=== PATIENT | female | born 1990 | race Caucasian/White ===

== ENCOUNTER 2020-02-22 16:43 | Emergency (ER) | payer SELFPAY ==
[2020-02-22] MEDS ORDERED: Ketorolac 15 MG/ML SDV IVPUSH ONE (17:14)
[2020-02-22] MEDS ORDERED: Prochlorperazine 10 MG/2 ML SDV IVPUSH ONE (17:14)
[2020-02-22] MEDS ORDERED: Acetaminophen 325 MG Tab PO ONE (17:14)
[2020-02-22] MEDS ORDERED: Sodium Chloride 0.9% 1,000 ML IV ONE (17:14)
--- NOTE | 2020-02-22 17:24 | EDM.PDOC ---
<Mike Membreno - Last Filed: 02/22/20 19:01> ED HPI GENERAL MEDICAL PROBLEM - General Chief Complaint: General Stated Complaint: DIZZINESS, RT SIDE PAIN Time Seen by Provider: 02/22/20 16:51 - History of Present Illness INITIAL COMMENTS - FREE TEXT/NARRATIVE: HISTORY AND PHYSICAL: History of present illness: This 29-year-old female with a past medical history of hypothyroidism, BMI greater than 40, presents emergency department complaining of right upper quadrant pain that she rates 5 out of 10. Is in the right upper quadrant and radiates towards the back. She does notice that is been worse after meals heavy in fat like fried chicken and pizza. She has not had problems with her gallbladder in the past. She denies any urinary symptoms. No shortness of breath or chest pain. No fever. No hematemesis or hematochezia. She has been nauseated and has vomited one time. She feels generally weak and worn down. No other associated signs or symptoms. No other modifying, aggravating or alleviating factors. Review of systems: A 10-point review of systems, other than pertinent positives and negatives as stated per HPI, is otherwise negative. Past medical history: As per history of present illness and as reviewed below otherwise noncontributory. Surgical history: As per history of present illness and as reviewed below otherwise noncontributory. Social history: No reported history of drug or alcohol abuse. Family history: As per history of present illness and as reviewed below otherwise noncontributory. Physical exam: VITAL SIGNS: Reviewed. GENERAL: Mild distress. Appears to be in acute pain HEAD: No signs of head trauma. EYES: Pupils are equal. Extraocular motions intact. EARS: Hearing grossly intact. MOUTH: Oropharynx is normal. NECK: No adenopathy, no JVD. CHEST: Chest with clear breath sounds bilaterally. No wheezes, rales, or rhonchi. CARDIAC: Regular rate and rhythm. Normal S1 and S2, without murmurs, gallops, or rubs. VASCULAR: Peripheral pulses normal and equal in all extremities. ABDOMEN: Soft, tender right upper quadrant, no distention or rebound. No CVA tenderness. MUSCULOSKELETAL: Good range of motion of all major joints. Extremities without clubbing, cyanosis or edema. NEUROLOGIC EXAM: Alert and oriented x 3. No focal sensory or motor deficits. Speech normal. Follows commands. PSYCHIATRIC: Mood normal. SKIN: No rash or lesions. Initial Differential Diagnosis & Plan: The differential diagnosis would include appendicitis, cholecystitis, pyelonephritis, pancreatitis, mesenteric infarction, diverticulitis, small bowel obstruction, volvulus, and ACS. Suggestive of biliary or renal colic. I will perform a bedside ultrasound to evaluate the gallbladder. If this is negative I will order a CT and a formal ultrasound. Will order labs to include CBC, CMP, UA, urine hCG, and a lipase. Definitive disposition and diagnosis as appropriate pending reevaluation and review of above. RUQ Pain Score (Numeric/FACES): 5 - Related Data Allergies Allergy/AdvReac Type Severity Reaction Status Date / Time No Known Allergies Allergy Verified 02/22/20 17:09 Home Meds: Home Meds Levothyroxine 75 mcg PO DAILY 02/22/20 [History] Venlafaxine [Effexor] 225 mg PO DAILY 02/22/20 [History] traZODone HCl [Trazodone HCl] 150 mg PO BEDTIME 02/22/20 [History] Past Medical History Endocrine/Metabolic History: Reports: Hypothyroidism - Past Surgical History HEENT Surgical History: Reports: Tonsillectomy Musculoskeletal Surgical History: Reports: Other (See Below) Other Musculoskeletal Surgeries/Procedures:: Bilateral Hip Surgeries x3 each Social & Family History - Family History Cardiac: Reports: Hypertension Endocrine/Metabolic: Reports: Diabetes, type II - Tobacco Use Smoking Status *Q: Current Every Day Smoker Years of Tobacco use: 3 Packs/Tins Daily: 0.5 - Recreational Drug Use Recreational Drug Use: No ED ROS GENERAL - Review of Systems Review Of Systems: Unable To Obtain (noted) Reason Not Obtained: noted ED EXAM, GENERAL - Physical Exam Exam: Not Obtained (see noted) ED GENERAL MEDICAL PROCEDURES - Additional/Other Procedure(s) Other (Free Text) Procedure(s): Procedure: Limited Abdominal Ultrasound - Right Upper Quadrant Performed and interpreted by me; images recorded and archived Indication: Right upper quadrant/epigastric pain/flank pain Findings: -No gallstones -No pericholecystic fluid -Normal gallbladder wall thickness -Common Bile duct not adequately visualized Interpretation: Normal right upper quadrant ultrasound No evidence of gallstones No evidence of cholecystitis Signed by Mike Membreno M.D. Procedure Note: Physician placed IV Due to difficult or critical IV access situation I have placed an IV for treatment and circulatory access. Location: 20-gauge angiocatheter right antecubital fossa Complications: None Course - Vital Signs Last Recorded V/S: Last Vital Signs Temp 36.6 C 02/22/20 19:11 Pulse 71 02/22/20 19:11 Resp 18 02/22/20 19:11 BP 127/70 02/22/20 19:11 Pulse Ox 99 02/22/20 19:11 - Orders/Labs/Meds Labs: Laboratory Tests 02/22/20 02/22/20 02/22/20 Range/Units 17:33 17:33 17:41 WBC 11.77 H (4.0-11.0) K/uL RBC 4.76 (4.30-5.90) M/uL Hgb 14.1 (12.0-16.0) g/dL Hct 43.2 (36.0-46.0) % MCV 90.8 (80.0-98.0) fL MCH 29.6 (27.0-32.0) pg MCHC 32.6 (31.0-37.0) g/dL RDW Std Deviation 43.8 (28.0-62.0) fl RDW Coeff of Bowen 13 (11.0-15.0) % Plt Count 350 (150-400) K/uL MPV 10.50 (7.40-12.00) fL Neut % (Auto) 63.4 (48.0-80.0) % Lymph % (Auto) 25.7 (16.0-40.0) % [place] % (Auto) 5.9 (0.0-15.0) % Eos % (Auto) 4.7 (0.0-7.0) % Baso % (Auto) 0.3 (0.0-1.5) % Neut # (Auto) 7.5 H (1.4-5.7) K/uL Lymph # (Auto) 3.0 H (0.6-2.4) K/uL [place] # (Auto) 0.7 (0.0-0.8) K/uL Eos # (Auto) 0.6 (0.0-0.7) K/uL Baso # (Auto) 0.0 (0.0-0.1) K/uL Nucleated RBC % 0.0 /100WBC Nucleated RBCs # 0 K/uL Sodium (136-145) mmol/L Potassium (3.5-5.1) mmol/L Chloride (98-107) mmol/L Carbon Dioxide (21.0-32.0) mmol/L BUN (7.0-18.0) mg/dL Creatinine (0.6-1.0) mg/dL Est Cr Clr Drug Dosing mL/min Estimated GFR (MDRD) ml/min Glucose (74-106) mg/dL Calcium (8.5-10.1) mg/dL Total Bilirubin (0.2-1.0) mg/dL AST (15-37) IU/L ALT (14-63) IU/L Alkaline Phosphatase (46-116) U/L Total Protein (6.4-8.2) g/dL Albumin (3.4-5.0) g/dL Globulin (2.6-4.0) g/dL Albumin/Globulin Ratio (0.9-1.6) Lipase (73-393) U/L Urine Color YELLOW Urine Appearance HAZY Urine pH 5.0 (5.0-8.0) Ur Specific Fork >= 1.030 (1.001-1.035) Urine Protein NEGATIVE (NEGATIVE) mg/dL Urine Glucose (UA) NEGATIVE (NEGATIVE) mg/dL Urine Ketones NEGATIVE (NEGATIVE) mg/dL Urine Occult Blood NEGATIVE (NEGATIVE) Urine Nitrite NEGATIVE (NEGATIVE) Urine Bilirubin NEGATIVE (NEGATIVE) Urine Urobilinogen 0.2 (<2.0) EU/dL Ur Leukocyte Esterase NEGATIVE (NEGATIVE) Urine HCG, Qual NEGATIVE (NEGATIVE) 02/22/20 Range/Units 17:41 WBC (4.0-11.0) K/uL RBC (4.30-5.90) M/uL Hgb (12.0-16.0) g/dL Hct (36.0-46.0) % MCV (80.0-98.0) fL MCH (27.0-32.0) pg MCHC (31.0-37.0) g/dL RDW Std Deviation (28.0-62.0) fl RDW Coeff of Bowen (11.0-15.0) % Plt Count (150-400) K/uL MPV (7.40-12.00) fL Neut % (Auto) (48.0-80.0) % Lymph % (Auto) (16.0-40.0) % [place] % (Auto) (0.0-15.0) % Eos % (Auto) (0.0-7.0) % Baso % (Auto) (0.0-1.5) % Neut # (Auto) (1.4-5.7) K/uL Lymph # (Auto) (0.6-2.4) K/uL [place] # (Auto) (0.0-0.8) K/uL Eos # (Auto) (0.0-0.7) K/uL Baso # (Auto) (0.0-0.1) K/uL Nucleated RBC % /100WBC Nucleated RBCs # K/uL Sodium 140 (136-145) mmol/L Potassium 3.8 (3.5-5.1) mmol/L Chloride 102 (98-107) mmol/L Carbon Dioxide 28.6 (21.0-32.0) mmol/L BUN 10 (7.0-18.0) mg/dL Creatinine 0.7 (0.6-1.0) mg/dL Est Cr Clr Drug Dosing 107.67 mL/min Estimated GFR (MDRD) > 60.0 ml/min Glucose 85 (74-106) mg/dL Calcium 9.5 (8.5-10.1) mg/dL Total Bilirubin 0.3 (0.2-1.0) mg/dL AST 25 (15-37) IU/L ALT 34 (14-63) IU/L Alkaline Phosphatase 62 (46-116) U/L Total Protein 7.3 (6.4-8.2) g/dL Albumin 3.9 (3.4-5.0) g/dL Globulin 3.4 (2.6-4.0) g/dL Albumin/Globulin Ratio 1.1 (0.9-1.6) Lipase 89 (73-393) U/L Urine Color Urine Appearance Urine pH (5.0-8.0) Ur Specific Fork (1.001-1.035) Urine Protein (NEGATIVE) mg/dL Urine Glucose (UA) (NEGATIVE) mg/dL Urine Ketones (NEGATIVE) mg/dL Urine Occult Blood (NEGATIVE) Urine Nitrite (NEGATIVE) Urine Bilirubin (NEGATIVE) Urine Urobilinogen (<2.0) EU/dL Ur Leukocyte Esterase (NEGATIVE) Urine HCG, Qual (NEGATIVE) Meds: Medications Discontinued Medications Generic Name Dose Route Start Last Admin Trade Name Yuli PRN Reason Stop Dose Admin Acetaminophen 975 mg 02/22/20 17:14 02/22/20 17:40 Tylenol PO 02/22/20 17:15 975 mg NOW ONE Administration Sodium Chloride 1,000 mls @ 2,000 mls/hr 02/22/20 17:14 02/22/20 17:40 Normal Saline IV 02/22/20 17:43 2,000 mls/hr .Bolus ONE Administration Ketorolac Tromethamine 15 mg 02/22/20 17:14 02/22/20 17:40 Toradol IVPUSH 02/22/20 17:15 15 mg ONETIME ONE Administration Prochlorperazine Edisylate 10 mg 02/22/20 17:14 02/22/20 17:40 Compazine IVPUSH 02/22/20 17:15 10 mg ONETIME ONE Administration - Re-Assessments/Exams Free Text/Narrative Re-Assessment/Exam: 02/22/20 19:04 The patient is feeling much better at time of turnover to my colleague, Dr. Escobar, who will follow up on the CT scan and reevaluate the patient. The labs are essentially normal. The right upper quadrant ultrasound shows a cyst on the kidney but not polycystic kidney disease. There is no biliary pathology noted. This is consistent with my bedside ultrasound done previously. CT scan is pending. I have reviewed the images and do not see clear evidence of obvious pathology but the radiologist is reading this currently. My diagnostic impression: 1. Abdominal pain unclear etiology symptoms resolved 2. History of BMI greater than 45 I discussed the go home plan with the patient and for discharge I do not recommend any specific medications as we do not want amassed symptoms that of unclear etiology. Dr. Escobar will prescribe appropriate medications if there is underlying pathology that will be helped by medication management. Departure - Departure Time of Disposition: 19:06 Disposition: Home, Self-Care 01 Clinical Impression: Right upper quadrant abdominal pain - Discharge Information *PRESCRIPTION DRUG MONITORING PROGRAM REVIEWED*: Not Applicable *COPY OF PRESCRIPTION DRUG MONITORING REPORT IN PATIENT SHANTI: Not Applicable Instructions: Abdominal Pain, Adult, [id number], Pain Without a Known Cause Referrals: Grondahl,Corinna L, [employer] [Primary Care Provider] - 1 Week (for follow-up of symptoms ) Forms: ED Department Discharge Additional Instructions: Thank you for choosing the [facility] emergency department in [place] for your medical needs today. It was a pleasure caring for you. You were seen in the emergency department for abdominal pain. Your blood work and CT scan were unremarkable. This should be reassuring, as we do not see a dangerous or life-threatening explanation for your pain today. I do recommend following up with your primary medical clinic in the next week or so for reevaluation if your symptoms do not subside. I recommend [id number] acetaminophen and ibuprofen for pain in the meantime. Come back to the emergency department immediately if your pain worsens, if you develop a fever of 100.4 or higher, repeated vomiting, vomiting blood, if you see blood in your bowel movements, or have any other new or concerning symptoms. Please return the emergency department immediately if your symptoms worsen or if you feel worse. The following information is given to patients seen in the emergency department who are being discharged. This information is to outline your options for follow -up care. We provide all patients seen in our emergency department with a follow -up referral. The need for follow-up, as well as the timing and circumstances, are variable depending upon the specifics of your emergency department visit. If you don't have a primary care physician on staff, we will provide you with a referral. We always advise you to contact your personal physician following an emergency department visit to inform them of the circumstance of the visit and for follow-up with them and/or the need for any referrals to a consulting specialist. The emergency department will also refer you to a specialist when appropriate. This referral assures that you have the opportunity for follow-up care with a specialist. All of these measure are taken in an effort to provide you with optimal care, which includes your follow-up. Under all circumstances we always encourage you to contact your private physician who remains a resource for coordinating your care. When calling for follow-up care, please make the office aware that this follow-up is from your recent emergency room visit. If for any reason you are refused follow-up, please contact the [facility] Emergency Department at and asked to speak to the emergency department charge nurse. If you do not have a primary care physician that is caring for you, you can contact these clinics below to set up an appointment to establish care: [facility] [address] [place] [address] [facility] [address] [place] [address] Sepsis Event Note - Evaluation Sepsis Screening Result: No Definite Risk - Focused Exam Vital Signs: Vital Signs Temp Pulse Resp BP Pulse Ox 02/22/20 19:11 36.6 C 71 18 127/70 99 02/22/20 17:04 36.4 C 82 18 132/95 H 97 Date Exam was Performed: 02/22/20 Time Exam was Performed: 19:01 <Rich Escobar - Last Filed: 02/22/20 19:26> Course - Vital Signs Text/Narrative:: I assumed care of this patient at [address] Mike Membreno. 29-year -old female complaining of right upper quadrant abdominal pain, worse after eating fatty foods. I reviewed the triage note along with vital signs and work- up. Vitally stable, afebrile. CBC shows a very slight leukocytosis. Electrolytes and renal function normal. Hepatic markers and lipase are within normal limits. Urinalysis is bland, no blood or evidence of infection. Noncontrast CT scan of the abdomen/pelvis showed multiple small nonobstructive calculi in both kidneys, otherwise no acute findings. Patient already received IV Compazine along with IV Toradol and Tylenol. I personally reevaluated the patient at 1920. Her most recent set of vital signs are reassuring. She is feeling much better after receiving medications. She has very minimal tenderness in the right upper quadrant, her abdomen is soft , and she appears very comfortable. Given her negative work-up and well appearance, she is stable to discharge home with outpatient primary care follow-up. I did recommend [id number] Tylenol/Motrin as needed for pain. Strict emergency department return precautions were provided, patient indicated understanding. All questions were answered prior to departure. Discharged in good condition. Departure - Departure Time of Disposition: 19:23 Condition: Good - Discharge Information *PRESCRIPTION DRUG MONITORING PROGRAM REVIEWED*: Not Applicable *COPY OF PRESCRIPTION DRUG MONITORING REPORT IN PATIENT SHANTI: Not Applicable Sepsis Event Note - Focused Exam Date Exam was Performed: 02/22/20 Time Exam was Performed: 19:24
[2020-02-22 18:16] LABS: BLOOD UREA NITROGEN,BUN 10 mg/dL (7.0-18.0); CARBON DIOXIDE,CO2 28.6 mmol/L (21.0-32.0); CHLORIDE,CL 102 mmol/L (98-107); GLUCOSE RANDOM 85 mg/dL (74-106); LIPASE 89 U/L (73-393); POTASSIUM,K 3.8 mmol/L (3.5-5.1); SODIUM,NA 140 mmol/L (136-145)
--- NOTE | 2020-02-22 18:26 | US ---
INDICATION: Right upper quadrant pain. COMPARISON: None available. TECHNIQUE: Ultrasound examination of the right upper quadrant was performed. FINDINGS: There is normal appearance of the gallbladder, with no sign of cholelithiasis or acute cholecystitis. There is no sign of gallbladder wall thickening or pericholecystic fluid. A sonographic Howe sign is not present. The common bile duct is normal in caliber at 3 mm. The pancreatic head and body were examined, and these are normal in appearance. The abdominal aorta and visualized portions of the inferior vena cava are normal in appearance. The liver shows no sign of mass or contour abnormality, and there is no sign of ascites. The right kidney is seen to have a small parapelvic cyst in the lower pole measuring 1.5 centimeters in diameter. IMPRESSION: Normal right upper quadrant ultrasound aside from incidental finding of a simple parapelvic cyst in the right kidney. Dictated by Ciro Austin MD @ Feb 22 2020 6:22PM Signed by Dr. Ciro Austin @ Feb 22 2020 6:25PM
--- NOTE | 2020-02-22 19:11 | CT ---
INDICATION: Right upper quadrant pain and flank pain. COMPARISON: Ultrasound of the right upper quadrant from today. TECHNIQUE: CT examination of the abdomen and pelvis was performed without contrast enhancement using 3 mm thick axial sections from the lung bases through the pubic symphysis. Oral contrast was not administered. Please note that all CT scans at this facility use dose modulation, iterative reconstruction, and/or weight-based dosing when appropriate to reduce radiation dose to as low as reasonably achievable. FINDINGS: In the abdomen, the unenhanced liver, spleen, pancreas, and adrenals are normal in appearance. There are several small, nonobstructive calculi in both kidneys. The largest calculus on the right is in the posterior interpolar region, measuring 4 millimeters in diameter. The largest calculus on the left is in the anterior interpolar region, measuring 3 millimeters in diameter. There is no sign of hydronephrosis or hydroureter. No ureteral calculi are evident. The gallbladder is normal in appearance. The abdominal aorta is normal in caliber with no sign of dilatation. There is no sign of retroperitoneal mass or adenopathy. The stomach, loops of small bowel, and colon in the abdomen are normal in appearance. In the pelvis, the appendix is normal in appearance with no sign of inflammatory process. The loops of small bowel and colon in the pelvis are normal in appearance. The uterus and adnexal regions are normal in appearance. The urinary bladder is normal in appearance. There is no sign of pelvic or inguinal mass or adenopathy. There is no sign of free air or free fluid in the abdomen or pelvis. The lung bases are clear. There is moderate disc degenerative disease at L4-5 and L5-S1. These are associated with moderate diffuse disc bulges with posterior osteophytic ridging, probably resulting in spinal stenosis. Incidental note is made of osteochondromas arising from the greater and lesser trochanters of the left hip. IMPRESSION: CT of the abdomen shows multiple small nonobstructive calculi in both kidneys, with no sign of any hydronephrosis, hydroureter, or ureteral calculi. Normal CT of the pelvis without contrast. Moderate disc degenerative disease at L4-5 and L5-S1 with moderate diffuse disc bulges and posterior osteophytic ridging, probably resulting in moderate spinal stenosis. Please note that all CT scans at this facility use dose modulation, iterative reconstruction, and/or weight-based dosing when appropriate to reduce radiation dose to as low as reasonably achievable. Dictated by Ciro Austin MD @ Feb 22 2020 6:58PM Signed by Dr. Ciro Austin @ Feb 22 2020 7:09PM
== END 2020-02-22 19:33 | disposition home or self-care (01) ==
LOC: MW.ED 16:43
DX: R10.11 Right upper quadrant pain (principal); R42 Dizziness and giddiness; E03.9 Hypothyroidism, unspecified; F17.210 Nicotine dependence, cigarettes, uncomplicated; Z79.899 Other long term (current) drug therapy
CPT/HCPCS: 36415; 74176; 76705; 80053; 81003; 81025; 83690; 85025; 96361; 96374; 96375; 99284; A9270; J0780; J1885; J7030; 99283